=== PATIENT | male | born 1940 | race Caucasian/White ===

== ENCOUNTER 2017-04-07 10:38 | Emergency (ER) | payer MEDICARE, OTHER ==
[2017-04-07] MEDS ORDERED: PLAVIX75 M1 PO (11:04)
[2017-04-07] MEDS ORDERED: BYSTOLIC5 M1 PO (11:05)
[2017-04-07] MEDS ORDERED: RANEXA500 M1 PO (11:05)
[2017-04-07] MEDS ORDERED: ZOCOR80 M1 PO (11:05)
[2017-04-07] MEDS ORDERED: FLOMAX0.4 M1 PO (11:05)
[2017-04-07] MEDS ORDERED: NORVASC5 M2 PO (11:05)
[2017-04-07] MEDS ORDERED: FISH OIL 1,2001 EAC4 PO (11:06)
[2017-04-07] MEDS ORDERED: MULTIVITAMINS1 EAC6 PO (11:06)
[2017-04-07] MEDS ORDERED: VITAMIN D31000 UNI4 PO (11:06)
[2017-04-07] MEDS ORDERED: ESTER-C 500 MG1 EACH PO (11:06)
[2017-04-07] MEDS ORDERED: COQ-10100 M1 PO (11:07)
[2017-04-07 11:09] LABS: PROTHROMBIN TIME 11.4 SECONDS (9.0-13.6)
[2017-04-07 11:11] LABS: BASO % 0.3 % (0-2); EOS % 3.6 % (0-7); EOSINOPHIL ABSOLUTE COUNT 0.2 tho/cmm (0.0-0.7); HCT-HEMATOCRIT 36.3 % (36.0-53.5); HGB-HEMOGLOBIN 12.3 gm/dl (13.5-17.0); LYMPH % 16.9 % (20-45); LYMPH ABSOLUTE COUNT 1.1 tho/cmm (0.8-4.5); MCH (MEAN CORPUSCULAR HGB) 30.7 pg (28.0-32.0); MCHC MEAN CORPUSCULAR HGB CONC 33.9 % (32.0-36.0); MCV (MEAN CELL VOLUME) 90.5 fl (82.0-96.0); MEAN PLATELET VOLUME 10.1 cmc (9.4-12.4); MONO % 11.3 % (0-12); MONOCYTE ABSOLUTE COUNT 0.8 tho/cmm (0.0-1.2); NEUTROPHIL ABSOLUTE COUNT 4.6 tho/cmm (1.6-8.0); NEUTROPHIL-AUTOMATED 4.6 tho/cmm (1.6-8.0); NEUTROPHILS % 67.9 % (40-80); PLATELET COUNT 239 tho/cmm (150-450); RED BLOOD COUNT 4.01 mil/cmm (4.40-5.70); RED CELL DISTRIBUTION WIDTH 13.4 % (12.4-16.4); WHITE BLOOD COUNT 6.7 tho/cmm (4.0-10.0)
[2017-04-07 11:22] LABS: ANION GAP 14 mmol/L (0-20); BLOOD UREA NITROGEN 30 mg/dl (6-24); CALCIUM 9.1 mg/dl (8.5-10.5); CARBON DIOXIDE-VENOUS 23 mmol/L (22-32); CHLORIDE 108 mmol/l (96-110); CREATININE 2.22 mg/dl (0.60-1.30); GLUCOSE 127 mg/dL (70-110); POTASSIUM 4.1 mmol/L (3.7-5.1); SODIUM 141 mmol/L (135-145); eGFR VALUE FOR BLACK 31 mL/Min
[2017-04-07 12:00] LABS: ESR-ERYTHROCYTE SED RATE 23 mm/hr (0-20)
== END 2017-04-07 14:43 | disposition other institution (70) ==
LOC: EDMED 10:38
PROVIDERS: Emergency Medicine
DX: G45.9 Transient cerebral ischemic attack, unspecified (principal); N18.9 Chronic kidney disease, unspecified; Z86.73 Personal history of transient ischemic attack (TIA), and cerebral infarction without residual deficits; Z88.1 Allergy status to other antibiotic agents; Z87.891 Personal history of nicotine dependence